=== PATIENT | male | born 1945 | race Caucasian/White ===

== ENCOUNTER → 2016-11-03 | Day surgery (SDC) | payer MEDICARE, OTHER ==
[~2016-11-03] VITALS: Ht 171.4 cm; Wt 77.3 kg
[~2016-11-03] MED LIST: ADVIL200 MG PO; ASPIRIN LO-DOSE81 MG PO; COLACE100 MG PO; FLOMAX0.4 MG PO; LEVAQUIN500 MG PO; MYSOLINE50 MG PO; NORCO 5-325 TA1 EACH PO; PYRIDIUM100 MG PO; SAW PALMETTO450 MG PO
--- NOTE | ~2016-11-03 | OR ---
PATIENT'S NAME: TO[facility]A [facility] AGE: 70 Y [address] ROOM: [place] [address] LOCATION: [facility] [place] ADMIT DATE: 11/03/2016 OR/Procedure Report DISCHARGE DATE: FAMILY PHYSICIAN: Td John MD ATTENDING PHYSICIAN: BARRERA HAWKINS SURGEON: Barrera Hawkins MD [employer]: None. DATE OF PROCEDURE: 11/03/2016 PREOPERATIVE DIAGNOSES: 1. Benign prostatic hyperplasia. 2. Lower urinary tract symptoms including incomplete bladder emptying, frequency, intermittency, urgency, weak stream, straining to void, nocturia. 3. Recurrent prostatitis. 4. History of recurrent urinary tract infection. 5. Recurrent anterior urethral stricture disease. POSTOPERATIVE DIAGNOSES: 1. Benign prostatic hyperplasia. 2. Lower urinary tract symptoms including incomplete bladder emptying, frequency, intermittency, urgency, weak stream, straining to void, nocturia. 3. Recurrent prostatitis. 4. History of recurrent urinary tract infection. 5. Recurrent anterior urethral stricture disease. OPERATIVE PROCEDURES: 1. Cystoscopy with urethral dilation. 2. Cystoscopy with UroLift procedure (prostatic urethral lift). ANESTHESIA ADMINISTERED: Monitored anesthesia care. INDICATIONS FOR PROCEDURE: The patient is a pleasant 70-year-old male with history of BPH with lower urinary tract symptoms, but also recurrent prostatitis, recurrent urinary tract infection, and recurrent anterior urethral stricture disease. The patient was explained the risks, benefits, indications, and alternatives to above procedure and wished to proceed and consented freely. DESCRIPTION OF OPERATION: The patient was brought back to the operating room, where he was placed on the OR table in the supine position. A surgical time- out was called where patient identification, surgical site, and procedure were then verified. We also did verify that the patient received an IV Levaquin antibiotic within an hour of beginning the procedure. The patient underwent PATIENT'S NAME: TO[facility]A [facility] AGE: 70 Y [address] ROOM: [place] [address] LOCATION: [facility] [place] ADMIT DATE: 11/03/2016 OR/Procedure Report DISCHARGE DATE: FAMILY PHYSICIAN: Td John MD ATTENDING PHYSICIAN: BARRERA HAWKINS successful administration of monitored anesthesia care. The patient was then moved and placed in a low lithotomy position where his genital area was then prepped and draped in the usual sterile fashion. I began by carefully advancing with a rigid cystoscope easily into the patient's anterior urethra. I did come across multiple anterior urethral strictures across his anterior urethra and bulbar urethra. These strictures varied anywhere from 16-18- Egyptian in caliber, but also 74-54-Ydaniu in caliber along his penile urethra with the more smaller caliber strictures noted in his bulbar urethra. I then advanced an Amplatz Super Stiff guidewire across the area of stricture and up into his bladder. Then, over the wire, I advanced an S-curved urethral dilator starting at 16-Egyptian and sequentially dilating up to 24-Egyptian in caliber. I then removed the wire and then re-advanced into the bladder with the rigid cystoscope. His prostatic urethra was notable for moderate bilobar hyperplasia of the prostate. His bladder did have evidence of long-term bladder outlet obstruction including 2 to 3+ bladder trabeculation. The cystoscope bridge was then replaced with the UroLift implant delivery device. The first treatment site was the patient's right side, approximately 1.5 cm distal to the bladder neck. The distal tip of the delivery device was then angled laterally approximately 20 degrees at this position to compress the lateral lobe. The trigger was pulled thereby deploying a needle containing the implant through the prostate. The needle was then retracted, allowing one end of the implant to be delivered to the capsular surface of the prostate. The implant was then tensioned to assure capsular seating and removal of the slack monofilament. The device was then angled back towards midline and slowly advanced proximally until verification with cystoscopy of the monofilament being centered in the delivery bay. With the final triggering, the urethral endpiece was affixed to the monofilament, thereby tailoring the size and tension of the implant. Excess filament was severed with this maneuver. The device was then re-advanced into the bladder. The opening effect from the implant placement was confirmed with cystoscopy. The above identical sequence was then repeated on the patient's left side. I then reinspected for successful placement of each implant as well as the degree of lateral lobe obstruction remaining. Two additional implants were delivered just proximal to the verumontanum in the same fashion again, 1 on the patient's right and 1 on the left side. A total of 4 implants were delivered successfully. We did have several areas of punctate bleeding or oozing from the patient's prostatic urethra, which was gently fulgurated with Bugbee monopolar electrocautery. Final cystoscopy was performed to inspect the location and state of each implant to assure proper seating and location. Final inspection also revealed a patent prostatic urethra. Given concurrent urethral dilation along with the urolith procedure, I did opt to leave a Wagoner catheter indwelling and placed an 18-Egyptian Wagoner catheter and this irrigated freely. 10 cubic centimeters of sterile water was placed in the balloon. The patient was then taken out of the lithotomy position where he was then awoken from monitored anesthesia care and transferred to recovery bed and transported PATIENT'S NAME: [facility]A [facility] AGE: 70 Y [address] ROOM: [place] [address] LOCATION: [facility] [place] ADMIT DATE: 11/03/2016 OR/Procedure Report DISCHARGE DATE: FAMILY PHYSICIAN: Td John MD ATTENDING PHYSICIAN: BARRERA HAWKINS to the recovery room in good condition. The patient did tolerate the procedure well. COMPLICATIONS: None. ESTIMATED BLOOD LOSS: Less than 10 cubic centimeters. DRAINS: Indwelling Wagoner catheter to gravity drainage. FOLLOWUP PLAN: We will plan to have the patient remove his catheter tomorrow morning at home with a trial of void and then we will plan to see him back for followup in Urology Clinic in 3-4 weeks from now. BARRERA HAWKINS MD GP/modl /[id number] CC: Td John MD d: 11/03/16 2137 t: 11/05/16 1126, OPERATIVE SUMMARY
[2016-11-03 12:19] LABS: BASOPHIL # 0.1 K/uL (0.0-0.2); BASOPHIL % 1.1 %; EOSINOPHIL # 0.1 K/uL (0.0-0.5); EOSINOPHIL % 2.7 %; HEMOGLOBIN 13.8 g/dL (11.0-16.0); IMMATURE GRANULOCYTE % 0.2 %; LYMPHOCYTE # 1.8 K/uL (0.8-4.0); LYMPHOCYTE % 38.9 %; MCH 29.7 pg (27.0-34.0); MCHC 33.7 gm/dL (32.0-36.5); MCV 88.4 fl (83.0-98.0); MONOCYTE # 0.4 K/uL (0.0-1.0); MPV 9.5 fl (9.4-12.4); NEUTROPHIL # (ANC) 2.2 K/uL (1.4-9.0); NEUTROPHIL % 49.1 %; NRBC % 0 /100WBC (0-0.00); PLATELET COUNT 167 K/uL (150-450); RBC 4.64 M/uL (3.50-5.50); RDW-CV 13.8 % (11.9-14.6); WBC 4.5 K/uL (4.0-11.0)
[2016-11-03 12:37] LABS: ALBUMIN 3.5 gm/dL (3.5-5.0); CALCIUM 8.5 mg/dL (8.5-10.5); CREATININE 0.9 mg/dL (0.6-1.3); TOTAL BILIRUBIN 0.8 mg/dL (0.0-1.5); TOTAL PROTEIN 7.1 g/dL (6.0-8.4)
[2016-11-03 12:39] LABS: ANION GAP 9.3 (10.0-19.0); POTASSIUM 4.3 mMol/L (3.7-5.1)
== END ==
LOC: GPOC 10-30 15:00 → GRAD 11-02 08:00 → GSDC 11:12 → EDSTATUS 11:30 → GRAD 11:30 → GPOC 11:30
PROVIDERS: Urology
PROC: 0T7D8DZ Dilation of Urethra with Intraluminal Device, Via Natural or Artificial Opening Endoscopic (ICD-10-PCS; principal; 2016-11-03)
DX: N35.9 Urethral stricture, unspecified (principal); N40.1 Benign prostatic hyperplasia with lower urinary tract symptoms; R39.14 Feeling of incomplete bladder emptying; R35.0 Frequency of micturition; R39.15 Urgency of urination; R35.1 Nocturia; R39.12 Poor urinary stream; N41.9 Inflammatory disease of prostate, unspecified; N39.0 Urinary tract infection, site not specified; Z79.82 Long term (current) use of aspirin; Z79.899 Other long term (current) drug therapy; Z79.52 Long term (current) use of systemic steroids
CPT/HCPCS: J1956; J2001; J7030; L8699